=== PATIENT | female | born 1990 ===

== ENCOUNTER 2017-08-07 04:24 | Emergency (ER) | payer SELFPAY ==
[2017-08-07 04:30] VITALS: RESP 16; TEMP 98.3
[2017-08-07] MEDS ORDERED: Sodium Chloride 0.9% 1,000 ML IV STA (04:48)
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
[2017-08-07 05:40] LABS: EOS # 0.2 K/uL (0.0-0.7); EOS % 3.8 % (0.0-4.0); HEMOGLOBIN 13.9 g/dL (12.0-16.0); LYMPH # 1.6 K/uL (1.0-4.3); LYMPH % 35.1 % (20.0-40.0); MEAN CELL VOLUME 95.3 fl (81.0-99.0); MEAN CORPUSCULAR HEMOGLOBIN 32.8 pg (27.0-31.0); MEAN CORPUSCULAR HGB CONC 34.4 g/dL (33.0-37.0); MEAN PLATELET VOLUME 8.4 fl (7.2-11.7); MONO # 0.5 K/uL (0.0-0.8); MONO % 10.6 % (0.0-10.0); NEUT # 2.2 K/uL (1.8-7.0); NEUT % 49.5 % (50.0-75.0); NRBC % 0.1 % (0.0-0.0); RBC 4.24 Mil/uL (3.80-5.20); RED CELL DISTRIBUTION WIDTH 12.3 % (11.5-14.5); WHITE BLOOD COUNT 4.5 K/uL (4.8-10.8)
[2017-08-07 05:43] LABS: ALB/GLOB RATIO 1.3 (1.0-2.1); ALBUMIN 4.4 g/dL (3.5-5.0); ALT/SGPT 35 U/L (9-52); AST/SGOT 21 U/L (14-36); BLOOD UREA NITROGEN 17 mg/dl (7-17); CALCIUM 9.3 mg/dL (8.4-10.2); GFR AFRICAN-AMERICAN > 60; GFR NON-AFRICAN AMERICAN > 60; SQUAMOUS EPITHIAL 2 /hpf (0-5); URINE BACTERIA RARE (<OCC); URINE BILIRUBIN NEGATIVE (NEGATIVE); URINE BLOOD NEGATIVE (NEGATIVE); URINE CLARITY CLOUDY (Clear); URINE COLOR YELLOW (YELLOW); URINE GLUCOSE (UA) NEG (Normal); URINE HYALINE CAST 0-2 /hpf (0-2); URINE LEUKOCYTE ESTERASE NEG Leu/uL (Negative); URINE PROTEIN 30 mg/dL (NEGATIVE); URINE UROBILINOGEN 0.2-1.0 mg/dL (0.2-1.0)
--- NOTE | 2017-08-07 08:32 | US ---
HISTORY: L pelvic pain, h/o L hysterosalpingogram 07/31 COMPARISON: None available. TECHNIQUE: Grayscale, color Doppler and spectral evaluation the pelvis performed transvaginally FINDINGS: UTERUS: Measures 5.8 x 4.7 x 3.7 cm. Retroverted. Normal in size and appearance. No fibroid or other mass lesion seen. ENDOMETRIUM: Measures 7 mm in diameter. Trace endometrial fluid. CERVIX: No cervical abnormality identified. RIGHT OVARY: Measures 2.7 x 1.7 x 3.1 cm. No solid mass. Normal flow. LEFT OVARY: Measures 2.1 x 1.6 x 2.2 cm. No solid mass. Normal flow. FREE FLUID: No significant free fluid noted. OTHER FINDINGS: None. IMPRESSION: Unremarkable pelvic ultrasound.
--- NOTE | 2017-08-07 10:06 | ED PDOC ---
- Laboratory Results Result Diagrams: 08/07/17 05:30 08/07/17 05:30 - ECG O2 Sat by Pulse Oximetry: 100 Medical Decision Making Medical Decision Making: Accession No. : [id number] Patient Name / ID : KATIE MORRIS / [id number] Exam Date : 08/07/2017 08:30:51 ( Approved ) Study Comment : Sex / Age : F / 27Y Creator : Riki Michelle MD Dictator : Riki Michelle MD Cmm Operator : Polysomnographic Technician : Riki Michelle MD Approver2 : Report Date : 08/07/2017 08:31:07 My Comment : HISTORY: L pelvic pain, h/o L hysterosalpingogram 07/31 COMPARISON: None available. TECHNIQUE: Grayscale, color Doppler and spectral evaluation the pelvis performed transvaginally FINDINGS: UTERUS: Measures 5.8 x 4.7 x 3.7 cm. Retroverted. Normal in size and appearance. No fibroid or other mass lesion seen. ENDOMETRIUM: Measures 7 mm in diameter. Trace endometrial fluid. CERVIX: No cervical abnormality identified. RIGHT OVARY: Measures 2.7 x 1.7 x 3.1 cm. No solid mass. Normal flow. LEFT OVARY: Measures 2.1 x 1.6 x 2.2 cm. No solid mass. Normal flow. FREE FLUID: No significant free fluid noted. OTHER FINDINGS: None. IMPRESSION: Unremarkable pelvic ultrasound. patient improved on re-eval, vitals stable DC from ED followup w her outpatient team Disposition Counseled Patient/Family Regarding: Studies Performed, Diagnosis, Need For Followup - Clinical Impression Clinical Impression: Vasovagal near syncope, Pelvic pain - POA Present On Arrival: None - Disposition Disposition: Routine/Home Disposition Time: 09:20 Condition: STABLE Instructions: Vasovagal Response, Acute Pelvic Pain (DC) Forms: [employer] (Chinese)
[2017-08-07 10:23] VITALS: BP 109/62; PULSE 69; O2SAT 99
--- NOTE | 2017-08-07 18:53 | CARD ---
APPROVED REPORT EKG Measurement Heart [id number] <Conclusion> Normal sinus rhythm Normal ECG
== END 2017-08-07 10:23 | disposition home or self-care (01) ==
LOC: H.ER 04:24
DX: R10.2 Pelvic and perineal pain (principal); R55 Syncope and collapse
CPT/HCPCS: 76830; 80053; 81003; 81025; 85025; 93005; 96360; 99284; J7040